=== PATIENT | male | born 1985 | race Two or more races ===

== ENCOUNTER 2021-06-05 15:36 | Emergency (ER) | payer MEDICAID ==
[~2021-06-05] VITALS: Ht 170.2 cm; Wt 71.4 kg
--- NOTE | 2021-06-05 15:53 | NUR ---
DR DEJESUS AT BEDSIDE .
[2021-06-05] MEDS ORDERED: methylPREDNISolone sod succ 125mg/2ml vial IV ONE (15:55)
[2021-06-05] MEDS ORDERED: magnesium 2GM in 50ml NS 50 ML IV ONE (15:55)
[2021-06-05] MEDS: albuterol 2.5 MG/3 ML nebule CONTNEB PRN ×2 (15:59→19:30)
--- NOTE | 2021-06-05 17:00 | NUR ---
notified dr hawkins that pt is still wheezing even after the 1 hour neb tx as per md feed the patient and repeat the 1 hour continous neb tx again and will go from there.
--- NOTE | 2021-06-05 18:08 | NUR ---
call rukhsana blair sister for ride back at [phone]. for any queries and hx call mother at [phone] who live at [place].
--- NOTE | 2021-06-05 18:42 | NUR ---
ASSUMED PT CARE. PT SEEMS DROWSY BUT IS ROUSABLE. PT IS IN BED EATING AT THE MOMENT. RT CAME TO BEDSIDE FOR TREATMENT. WILL COME BACK IN 30 MIN TO ALLOW PT TIME TO EAT. AUDIBLE WHEEZING.
[2021-06-05] MEDS ORDERED: PRED20TA PO (19:03)
--- NOTE | 2021-06-05 19:19 | NUR ---
PT REFUSING LAB DRAW. AWARE.
[2021-06-05 22:56] VITALS: BP 119/81
--- NOTE | 2021-06-05 23:10 | NUR ---
PT WAS MEDICALLY CLEARED FOR DC. WHEN I TRIED TO DISCUSS DC WITH PT AND REMOVE HIS HEART MONITOR LEADS, PT STATED "I AM NOT LEAVING, I WANT ANOTHER TREATMENT." i NOTIFIED MD DEJESUS WHO THEN WENT TO SPEAK W/ PT. NOTIFIED ME THAT THE PT IS CLEARED FOR DC AND TO PLEASE CALL SECURITY FOR ASSISTANCE. I RETURNED TO PT AND ASKED HIM TO REMOVE HIS LEADS. "PT STATED DO NOT TOUCH ME, GET AWAY FROM ME." PT WAS GIVEN MULTIPLE OPPORTUNITIES TO LEAVE BUT REFUSED. PT STATING "IM GOING TO [facility] ALL OF YOU." SECURITY ESCORTED PT OUT OF ER.
== END 2021-06-05 23:00 | disposition home or self-care (01) ==
LOC: ER 15:37
DX: J45.901 Unspecified asthma with (acute) exacerbation (principal); R06.02 Shortness of breath; Z79.899 Other long term (current) drug therapy
CPT/HCPCS: 71045; 94640; 94644; 94645; 96365; 96366; 96375; 99285; J2930; J3475; 94760; A7015

== ENCOUNTER 2021-07-25 11:23 | Emergency (ER) | payer MEDICAID ==
[~2021-07-25] VITALS: Ht 175.3 cm; Wt 90.0 kg
[2021-07-25 11:36] VITALS: BP 103/66
[2021-07-25 12:58] LABS: BASOPHILS # (AUTO) 0.1 X10'3 (0-0.2); BASOPHILS % (AUTO) 0.6 % (0-1); EOSINOPHILS # (AUTO) 0.3 X10'3 (0-0.9); EOSINOPHILS % (AUTO) 1.9 % (0-6); HEMATOCRIT 39.3 % (42.0-52.0); HEMOGLOBIN 13.2 g/dl (14.0-17.9); LYMPHOCYTES # (AUTO) 0.8 X10'3 (1.1-4.8); LYMPHOCYTES % (AUTO) 6.1 % (21-51); MEAN CORPUSCULAR HEMOGLOBIN 28.7 PG (27.0-31.0); MEAN CORPUSCULAR HGB CONC 33.5 g/dL (33.0-36.5); MEAN CORPUSCULAR VOLUME 85.6 FL (78-98); MEAN PLATELET VOLUME 7.4 FL (7.4-10.4); MONOCYTES # (AUTO) 1.4 X10'3 (0-0.9); MONOCYTES % (AUTO) 10.4 % (2-12); NEUTROPHILS # (AUTO) 10.9 X10'3 (1.8-7.7); PLATELET COUNT 398 X10'3 (140-440); RED BLOOD COUNT 4.59 X10'6 (4.70-6.10); RED CELL DISTRIBUTION WIDTH 14.2 % (11.5-14.5); WHITE BLOOD COUNT 13.5 X10'3 (4.5-11.0)
[2021-07-25 13:19] LABS: ALANINE AMINOTRANSFERASE 85 U/L (12-78); ALBUMIN 3.2 G/DL (3.4-5.0); ALBUMIN/GLOBULIN RATIO 0.7 (1.1-1.5); ALKALINE PHOSPHATASE 149 IU/L (46-116); ANION GAP 11 (8-16); ASPARTATE AMINO TRANSFERASE 35 U/L (10-37); BILIRUBIN,TOTAL 0.4 MG/DL (0.1-1.0); BLOOD UREA NITROGEN 10 MG/DL (7-18); CALCIUM 9.4 MG/DL (8.5-10.1); CHLORIDE 100 MMOL/L (99-107); CREATININE 0.77 MG/DL (0.60-1.10); GLUCOSE 109 MG/DL (70-104); POTASSIUM 4.2 MMOL/L (3.5-5.1); SODIUM 139 MMOL/L (135-145); TOTAL CARBON DIOXIDE 27.8 MMOL/L (24-32); TOTAL PROTEIN 7.9 G/DL (6.4-8.2); eGFR > 90 ML/MIN
[2021-07-25] MEDS ORDERED: CefTRIAXone 2gm/D5W 50ml BAG 50 ML IV ONE (13:55)
[2021-07-25] MEDS ORDERED: DOXY100C77 PO (14:06)
[2021-07-25] MEDS ORDERED: ALBU8HFA PO (14:07)
[2021-07-25] MEDS ORDERED: DOXYCYCLINE 100MG CAPSULE PO STA (14:07)
== END 2021-07-25 14:31 ==
LOC: ER 11:24
DX: S00.03XA Contusion of scalp, initial encounter (principal); R07.89 Other chest pain; M79.605 Pain in left leg; R51.9 Headache, unspecified; R11.0 Nausea; M54.2 Cervicalgia; J45.909 Unspecified asthma, uncomplicated; J18.9 Pneumonia, unspecified organism; Z79.2 Long term (current) use of antibiotics; X58.XXXA Exposure to other specified factors, initial encounter; Y93.89 Activity, other specified; Y92.89 Other specified places as the place of occurrence of the external cause; Y99.8 Other external cause status
CPT/HCPCS: 36415; 70450; 71045; 72125; 73552; 80053; 85025; 99285

== ENCOUNTER 2021-09-26 17:39 | Emergency (ER) | payer SELFPAY ==
[~2021-09-26] VITALS: Ht 170.2 cm; Wt 72.7 kg
[2021-09-26 18:00] VITALS: BP 129/84
[2021-09-26] MEDS ORDERED: PRED20TA PO (18:10)
[2021-09-26] MEDS ORDERED: FLUT1DIS4 INH (18:10)
[2021-09-26] MEDS ORDERED: ALB0.5UD IH (18:10)
[2021-09-26] MEDS ORDERED: ALBU8.5H17 IH (18:10)
[2021-09-26] MEDS ORDERED: ipratropium/albuterol 3ml nebule NEB ONE (18:15)
[2021-09-26] MEDS ORDERED: methylPREDNISolone sod succ 125mg/2ml vial IM ONE (18:15)
[2021-09-26] MEDS ORDERED: albuterol 2.5 MG/3 ML nebule NEB PRN (18:20)
--- NOTE | 2021-09-26 19:31 | NUR ---
THIS PATIENT WAS NOT IN THE LOBBY WHEN CALLED FOR TREATMENTS. PER THE IT PROGRAMMER ANALYST THE PATIENT WAS IMPATIENRT AND DECIDED TO LEAVE. THIS PATIENT HAD BEEN SEEN BY MAGALYS LANDAVERDE. HE LEFT PRIOR TO TREATMENT AFTER EVAL.
== END 2021-09-26 19:37 | disposition home or self-care (01) ==
LOC: ER 17:40
DX: J45.901 Unspecified asthma with (acute) exacerbation (principal); Z76.0 Encounter for issue of repeat prescription
CPT/HCPCS: 99281; 99283

== ENCOUNTER 2021-12-30 10:49 | Emergency (ER) | payer MEDICAID ==
[~2021-12-30] VITALS: Ht 175.3 cm; Wt 79.0 kg
[~2021-12-30 10:49] MED LIST: ALBU8.5H17 IH; FLUT1DIS4 INH
[2021-12-30 10:55] VITALS: BP 118/70
[2021-12-30] MEDS ORDERED: albuterol 2.5 MG/3 ML nebule NEB ONE (11:05)
[2021-12-30] MEDS ORDERED: dexamethasone 4mg tablet PO ONE (11:05)
[2021-12-30] MEDS ORDERED: ALBU8.5H17 IH (11:12)
[2021-12-30] MEDS ORDERED: FLUT1DIS20 INH (11:12)
== END 2021-12-30 11:38 | disposition home or self-care (01) ==
LOC: ER 10:49
DX: J45.901 Unspecified asthma with (acute) exacerbation (principal); Z79.899 Other long term (current) drug therapy
CPT/HCPCS: 94640; 94760; 99283